=== PATIENT | female | born 1975 | race Caucasian/White ===

== ENCOUNTER 2017-09-26 12:07 | Emergency (ER) | payer MEDICAID ==
[~2017-09-26] VITALS: Ht 157.5 cm; Wt 50.0 kg
[~2017-09-26 12:07] MED LIST: DICY1TAB26 PO; FLAG500T PO; LOMO PO; SUCR1S PO; ZOFR4TAB3 SL
[2017-09-26 12:08] VITALS: BP 132/103; PULSE 125; RESP 20; TEMP 98.6; O2SAT 99
[2017-09-26 12:28] VITALS: BP 158/102; PULSE 109; RESP 20; O2SAT 97
[2017-09-26] MEDS ORDERED: SODIUM CHLOR 0.9% 1000 ML INJ 1,000 ML IV SCH (12:46)
[2017-09-26] MEDS ORDERED: MORPHINE SULFATE 4 MG/ML INJ IV PUSH ONE ×2 (13:00→15:30)
[2017-09-26] MEDS ORDERED: ONDANSETRON HCL 4 MG/2 ML VIAL IV PUSH ONE (13:00)
[2017-09-26] MEDS ORDERED: SODIUM CHLORIDE 0.9% FLUSH 10 ML FLUSH IV FLUSH PRN (13:00)
--- NOTE | 2017-09-26 13:01 | PD ---
HPI Chief Complaint: Abdominal Pain Time Seen by Provider: 12:48 Travel History International Travel<30 days: No Contact w/Intl Traveler<30days: No Traveled to known affect area: No History of Present Illness HPI 42-year-old female with PMH of pancreatitis presents to the ED for evaluation of 2 day history of 10/10 left upper quadrant pain that radiates to the back. Gradual onset. Accompanied by anorexia, nausea, vomiting, watery stools. Patient denies fevers, chills, palpitations, cough, hematemesis, melena, hematochezia, BRBPR. She states this pain feels similar to previous episodes of pancreatitis. She endorses social drinking. She states that she had her class reunion this weekend and drank Sunday and Sunday prior to onset of symptoms. No treatment attempted at home. She denies history of abdominal surgery. PFSH Past Medical History Hx Anticoagulant Therapy: No Asthma: No Heart Rhythm Problems: No Cancer: No Cardiovascular Problems: No High Cholesterol: No Chemotherapy: No Chest Pain: No Congestive Heart Failure: No COPD: No Cerebrovascular Accident: No Diabetes: No Diminished Hearing: No Endocrine: No Gastrointestinal Disorders: Yes GERD: Yes Genitourinary: No Headaches: Yes (OCCASIONAL) Hiatal Hernia: No Hypertension: No Immune Disorder: No Implanted Vascular Access Dvce: No Musculoskeletal: No Neurologic: Yes Psychiatric: No Reproductive: No Respiratory: No Pancreatitis: Yes Sleep Apnea: No Ulcer: No Tetanus Vaccination: > 5 Years Influenza Vaccination: No ?: Unknown : 3 Para: 3 Ovarian Cysts: Yes Past Surgical History Gynecologic Surgery: Yes (IUD) Hysterectomy: No Tonsillectomy: Yes Other Surgery: No Social History Alcohol Use: Yes (frequently) Tobacco Use: Yes (1.5 PPD) Substance Use: No Allergies-Medications (Allergen,Severity, Reaction): Coded Allergies: No Known Allergies (Verified Allergy, Unknown, 09/26/17) Uncoded Allergies: steroids (Allergy, Unknown, 09/26/17) pt does not know what type of reaction Reported Meds & Prescriptions Reported Meds & Active Scripts Active Zofran Odt (Ondansetron Odt) 4 Mg Tab 4 Mg SL Q8HR PRN Percocet (Oxycodone-Acetaminophen) 7.5-325 mg Tab 1 Tab PO Q6H PRN Review of Systems Except as stated in HPI: all other systems reviewed are Neg Physical Exam Narrative GENERAL: Well-nourished, well-developed petite white female in no acute distress. SKIN: Focused skin assessment warm/dry. HEAD: Normocephalic. EYES: No scleral icterus. No injection or drainage. NECK: Supple, trachea midline. No JVD or lymphadenopathy. CARDIOVASCULAR: Regular rate and rhythm without murmurs, gallops, or rubs. RESPIRATORY: Breath sounds equal bilaterally. No accessory muscle use. GASTROINTESTINAL: Abdomen soft, nondistended. Tender to palpation in the epigastric and left upper quadrant regions. Active bowel sounds. No palpable masses. MUSCULOSKELETAL: No cyanosis, or edema. BACK: Nontender without obvious deformity. Positive left-sided CVA tenderness. Data Data Last Documented VS Vital Signs Date Time Temp Pulse Resp B/P (MAP) Pulse Ox O2 Delivery O2 Flow Rate FiO2 09/26/17 15:43 78 18 170/101 (124) 98 Room Air 09/26/17 12:08 98.6 Orders Orders Complete Blood Count With Diff (09/26/17 12:46) Comprehensive Metabolic Panel (09/26/17 12:46) Lipase (09/26/17 12:46) Lactic Acid (09/26/17 12:46) Prothrombin Time / Inr (Pt) (09/26/17 12:46) Act Partial Throm Time (Ptt) (09/26/17 12:46) Urinalysis - C+S If Indicated (09/26/17 12:46) Iv Access Insert/Monitor (09/26/17 12:46) Ecg Monitoring (09/26/17 12:46) Oximetry (09/26/17 12:46) NPO (09/26/17 12:46) Morphine Inj (Morphine Inj) (09/26/17 13:00) Sodium Chlor 0.9% 1000 Ml Inj (Ns 1000 M (09/26/17 12:46) Sodium Chloride 0.9% Flush (Ns Flush) (09/26/17 13:00) Electrocardiogram (09/26/17 12:46) Ondansetron Inj (Zofran Inj) (09/26/17 13:00) Ct Abd/Pel W Iv Contrast(Rout) (09/26/17 12:56) Ed Urine Pregnancytest Poc (09/26/17 12:56) Potassium Chloride (Kcl) (09/26/17 14:30) Morphine Inj (Morphine Inj) (09/26/17 15:30) Iohexol 350 Inj (Omnipaque 350 Inj) (09/26/17 16:01) Oxycodone-Acetamin 7.5-325 Mg (Percocet (09/26/17 16:45) Ondansetron Odt (Zofran Odt) (09/26/17 16:45) Oral Rehydration (09/26/17 16:35) Ed Discharge Order (09/26/17 16:56) Labs Laboratory Tests Test 09/26/17 13:00 09/26/17 14:52 White Blood Count 13.3 TH/MM3 Red Blood Count 4.67 MIL/MM3 Hemoglobin 14.9 GM/DL Hematocrit 43.6 % Mean Corpuscular Volume 93.4 FL Mean Corpuscular Hemoglobin 31.8 PG Mean Corpuscular Hemoglobin Concent 34.1 % Red Cell Distribution Width 14.4 % Platelet Count 349 TH/MM3 Mean Platelet Volume 8.1 FL Neutrophils (%) (Auto) 73.8 % Lymphocytes (%) (Auto) 20.0 % Monocytes (%) (Auto) 4.5 % Eosinophils (%) (Auto) 1.4 % Basophils (%) (Auto) 0.3 % Neutrophils # (Auto) 9.8 TH/MM3 Lymphocytes # (Auto) 2.7 TH/MM3 Monocytes # (Auto) 0.6 TH/MM3 Eosinophils # (Auto) 0.2 TH/MM3 Basophils # (Auto) 0.0 TH/MM3 CBC Comment DIFF FINAL Differential Comment Prothrombin Time 10.6 SEC Prothromb Time International Ratio 1.0 RATIO Activated Partial Thromboplast Time 26.6 SEC Blood Urea Nitrogen 14 MG/DL Creatinine 0.73 MG/DL Random Glucose 161 MG/DL Total Protein 7.3 GM/DL Albumin 4.1 GM/DL Calcium Level 9.1 MG/DL Alkaline Phosphatase 79 U/L Aspartate Amino Transf (AST/SGOT) 39 U/L Alanine Aminotransferase (ALT/SGPT) 27 U/L Total Bilirubin 1.2 MG/DL Sodium Level 134 MEQ/L Potassium Level 3.4 MEQ/L Chloride Level 99 MEQ/L Carbon Dioxide Level 23.6 MEQ/L Anion Gap 11 MEQ/L Estimat Glomerular Filtration Rate 88 ML/MIN Lactic Acid Level 1.4 mmol/L Lipase 511 U/L Urine Color LIGHT-YELLOW Urine Turbidity CLEAR Urine pH 7.0 Urine Specific [place] 1.010 Urine Protein NEG mg/dL Urine Glucose (UA) NEG mg/dL Urine Ketones NEG mg/dL Urine Occult Blood NEG Urine Nitrite NEG Urine Bilirubin NEG Urine Urobilinogen LESS THAN 2.0 MG/DL Urine Leukocyte Esterase NEG Urine WBC LESS THAN 1 /hpf Urine Squamous Epithelial Cells 2 /hpf Microscopic Urinalysis Comment CULT NOT INDICATED MDM Medical Decision Making Medical Screen Exam Complete: Yes Emergency Medical Condition: Yes Differential Diagnosis Pancreatitis versus gastritis versus diverticulitis versus cholecystitis versus other Narrative Course 42-year-old female with PMH pancreatitis presents to the ED for evaluation 2 day history of 10/10 left upper quadrant pain that radiates to the back. Gradual onset with accompanying anorexia, nausea, vomiting, watery stools. States pain is similar to previous episodes of pancreatitis. Endorses social drinking, recent binge due to her class reunion. No treatment attempted at home. No history of abdominal surgery. Vitals reviewed. Patient is tachycardic and hypertensive on presentation. Physical exam reveals a petite white female in no acute distress. She is diffusely tender in the abdomen, worse in the epigastric region and upper left quadrant. IV was established. 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 EKG: Rate 81, sinus rhythm. SC interval 136, QRS 79, QTC 437. Normal axis. No ST changes. Reviewed by Dr. Mahajan. CBC: WBC 13.3. Hemoglobin 14.9. Coags: INR 1.0. CMP: Potassium 3.4. Bilirubin 1.2. AST 39. Lipase 511. CT abdomen and pelvis: Pancreatitis per radiology read. Patient was administered 40 mg KCl by mouth. I discussed the results of the work up with Dr. Mahajan and the patient. I offered her admission for fluids and pain management. At this time she opts to treat at home. We discussed reasons to return to the ED including intractable nausea and vomiting, fevers, hematemesis. She is provided a prescription for Zofran and Percocet. She is instructed to abstain from alcohol, hydrate. I feel the patient is reliable for return should symptoms worsen. She stable and discharged home. Diagnosis Primary Impression: Pancreatitis Qualified Codes: K85.20 - Alcohol induced acute pancreatitis without necrosis or infection Referrals: Primary Care Physician Patient Instructions: General Instructions, Pancreatitis (ED) Additional Instructions: Rest, hydrate. Take medications as prescribed. Abstain from alcohol. Follow-up with the primary care provider. Return to the ED for worsening symptoms or any urgent or emergent medical condition. Med/Other Pt SpecificInfo: Prescription(s) given Scripts Ondansetron Odt (Zofran Odt) 4 Mg Tab 4 MG SL Q8HR Y for Nausea/Vomiting, #6 TAB 0 Refills Prov: Olive Mahajan MD 09/26/17 Oxycodone-Acetaminophen (Percocet) 7.5-325 mg Tab 1 TAB PO Q6H Y for PAIN, #15 TAB 0 Refills Prov: Olive Mahajan MD 09/26/17 Disposition: 01 DISCHARGE HOME Condition: Stable Manju Cunningham Sep 26, 2017 13:01
[2017-09-26 13:05] VITALS: O2SAT 97
[2017-09-26 13:22] LABS: AUTOMATED NEUTROPHIL # 9.8 TH/MM3 (1.8-7.7); BASOPHIL % 0.3 % (0.0-2.0); EOSINOPHIL # 0.2 TH/MM3 (0-0.4); EOSINOPHIL % 1.4 % (0.0-4.0); HEMATOCRIT 43.6 % (35.0-46.0); HEMO FLAGS DIFF FINAL; LYMPHOCYTE # 2.7 TH/MM3 (1.0-4.8); MEAN CELL VOLUME 93.4 FL (80.0-100.0); MEAN CORPUSCULAR HEMOGLOBIN 31.8 PG (27.0-34.0); MEAN CORPUSCULAR HGB CONC 34.1 % (32.0-36.0); MONO % 4.5 % (0.0-8.0); NEUT % 73.8 % (16.0-70.0); PLATELET COUNT 349 TH/MM3 (150-450); RED BLOOD COUNT 4.67 MIL/MM3 (4.00-5.30); RED CELL DISTRIBUTION WIDTH 14.4 % (11.6-17.2); WHITE BLOOD COUNT 13.3 TH/MM3 (4.0-11.0)
[2017-09-26 13:35] LABS: APTT (PATIENT) 26.6 SEC (24.3-30.1); PROTHROMBIN TIME - PATIENT 10.6 SEC (9.8-11.6)
[2017-09-26 13:47] LABS: ALKALINE PHOSPHATASE 79 U/L (45-117); ALT (GPT) 27 U/L (10-53); TOTAL BILIRUBIN ADULT 1.2 MG/DL (0.2-1.0)
[2017-09-26 13:50] LABS: ANION GAP 11 MEQ/L (5-15); AST (GOT) 39 U/L (15-37); BICARBONATE 23.6 MEQ/L (21.0-32.0); BLOOD UREA NITROGEN 14 MG/DL (7-18); CHLORIDE 99 MEQ/L (98-107); GLOMERULAR FILTRATION RATE 88 ML/MIN (>89); POTASSIUM 3.4 MEQ/L (3.5-5.1); SODIUM (NA) 134 MEQ/L (136-145)
[2017-09-26] MEDS ORDERED: POTASSIUM CHLORIDE 20 MEQ CONTROLLED RELEASE TAB PO ONE (14:30)
--- NOTE | 2017-09-26 14:39 | PD ---
Physical Exam Date Seen by Provider: Sep 26, 2017 Narrative Patient presents with upper abdominal pain. She has a history of pancreatitis. Data Data Last Documented VS Vital Signs Date Time Temp Pulse Resp B/P (MAP) Pulse Ox O2 Delivery O2 Flow Rate FiO2 09/26/17 13:05 97 Room Air 09/26/17 12:28 109 20 09/26/17 12:08 98.6 Orders Orders Complete Blood Count With Diff (09/26/17 12:46) Comprehensive Metabolic Panel (09/26/17 12:46) Lipase (09/26/17 12:46) Lactic Acid (09/26/17 12:46) Prothrombin Time / Inr (Pt) (09/26/17 12:46) Act Partial Throm Time (Ptt) (09/26/17 12:46) Urinalysis - C+S If Indicated (09/26/17 12:46) Iv Access Insert/Monitor (09/26/17 12:46) Ecg Monitoring (09/26/17 12:46) Oximetry (09/26/17 12:46) NPO (09/26/17 12:46) Morphine Inj (Morphine Inj) (09/26/17 13:00) Sodium Chlor 0.9% 1000 Ml Inj (Ns 1000 M (09/26/17 12:46) Sodium Chloride 0.9% Flush (Ns Flush) (09/26/17 13:00) Electrocardiogram (09/26/17 12:46) Ondansetron Inj (Zofran Inj) (09/26/17 13:00) Ct Abd/Pel W Iv Contrast(Rout) (09/26/17 12:56) Ed Urine Pregnancytest Poc (09/26/17 12:56) Potassium Chloride (Kcl) (09/26/17 14:30) Labs Laboratory Tests Test 09/26/17 13:00 White Blood Count 13.3 TH/MM3 Red Blood Count 4.67 MIL/MM3 Hemoglobin 14.9 GM/DL Hematocrit 43.6 % Mean Corpuscular Volume 93.4 FL Mean Corpuscular Hemoglobin 31.8 PG Mean Corpuscular Hemoglobin Concent 34.1 % Red Cell Distribution Width 14.4 % Platelet Count 349 TH/MM3 Mean Platelet Volume 8.1 FL Neutrophils (%) (Auto) 73.8 % Lymphocytes (%) (Auto) 20.0 % Monocytes (%) (Auto) 4.5 % Eosinophils (%) (Auto) 1.4 % Basophils (%) (Auto) 0.3 % Neutrophils # (Auto) 9.8 TH/MM3 Lymphocytes # (Auto) 2.7 TH/MM3 Monocytes # (Auto) 0.6 TH/MM3 Eosinophils # (Auto) 0.2 TH/MM3 Basophils # (Auto) 0.0 TH/MM3 CBC Comment DIFF FINAL Differential Comment Prothrombin Time 10.6 SEC Prothromb Time International Ratio 1.0 RATIO Activated Partial Thromboplast Time 26.6 SEC Blood Urea Nitrogen 14 MG/DL Creatinine 0.73 MG/DL Random Glucose 161 MG/DL Total Protein 7.3 GM/DL Albumin 4.1 GM/DL Calcium Level 9.1 MG/DL Alkaline Phosphatase 79 U/L Aspartate Amino Transf (AST/SGOT) 39 U/L Alanine Aminotransferase (ALT/SGPT) 27 U/L Total Bilirubin 1.2 MG/DL Sodium Level 134 MEQ/L Potassium Level 3.4 MEQ/L Chloride Level 99 MEQ/L Carbon Dioxide Level 23.6 MEQ/L Anion Gap 11 MEQ/L Estimat Glomerular Filtration Rate 88 ML/MIN Lactic Acid Level 1.4 mmol/L Lipase 511 U/L MDM Supervised Visit with REINALDO: Yes Narrative Course I, Dr. Mahajan, have reviewed the advance practice practitioner's documentation and am in agreement, met with the patient face to face, made the diagnosis, and the medical decision making was done by me. *My assessment and Findings: Patient looks well. She is asking use the restroom. Please see Manju Cunningham PA-C's note for results of laboratory and radiographic evaluation, ED course, final diagnosis and disposition Scripts No Active Prescriptions or Reported Meds Olive Mahajan MD Sep 26, 2017 14:39
[2017-09-26 15:09] LABS: BLOOD, URINE NEG (NEG); COMMENT (UR) CULT NOT INDICATED; CULTURE IF INDICATED CULT NOT INDICATED; GLUCOSE,URINE NEG (NEG); KETONE, URINE NEG (NEG); NITRITE,URINE NEG (NEG); SQUAMOUS EPITHELIAL CELL URINE 2 /hpf (0-5); URINE COLOR LIGHT-YELLOW (YELLW/STRAW)
[2017-09-26 15:43] VITALS: BP 170/101; PULSE 78; RESP 18; O2SAT 98
[2017-09-26] MEDS ORDERED: IOHEXOL 350 MG/ML 10 ML VIAL (for RAD DIAG) IVCONTRAST ONE (16:01)
--- NOTE | 2017-09-26 16:22 | RADRPT ---
EXAM DATE/TIME: 09/26/2017 15:52 [facility] COMPARISON: No previous studies available for comparison. INDICATIONS : Right upper quadrant pain. IV CONTRAST: 100 cc Omnipaque 350 (iohexol) IV ORAL CONTRAST: No oral contrast ingested. RADIATION DOSE: 6.64 CTDIvol (mGy) MEDICAL HISTORY : Pancreatitis. SURGICAL HISTORY : IUD ENCOUNTER: Initial ACUITY: 1 day PAIN SCALE: 7/10 LOCATION: Right upper quadrant TECHNIQUE: Volumetric scanning of the abdomen and pelvis was performed. Using automated exposure control and ad justment of the mA and/or kV according to patient size, radiation dose was kept as low as reasonably achievable to obtain optimal diagnostic quality images. DICOM format image data is available electro nically for review and comparison. FINDINGS: LOWER LUNGS: The visualized lower lungs are clear. LIVER: Homogeneous density without lesion. There is no dilation of the biliary tree. No calcified gallston es. SPLEEN: Normal size without lesion. PANCREAS: Moderate peripancreatic edema consistent with pancreatitis. No evidence of loculated fluid collection to suggest pseudocyst or abscess at present. KIDNEYS: Normal in size and shape. There is no mass, stone or hydronephrosis. ADRENAL GLANDS: Within normal limits. VASCULAR: There is no aortic aneurysm. BOWEL/MESENTERY: The stomach, small bowel, and colon demonstrate no acute abnormality. There is no free intraperitone al air or fluid. ABDOMINAL WALL: Within normal limits. RETROPERITONEUM: There is no lymphadenopathy. BLADDER: No wall thickening or mass. REPRODUCTIVE: Intrauterine device in place. No evidence of adnexal mass or free fluid. INGUINAL: There is no lymphadenopathy or hernia. MUSCULOSKELETAL: Within normal limits for patient age. CONCLUSION: Pancreatitis. Arun Smith MD on September 26, 2017 at 16:15 Board Certified Radiologist. This report was verified electronically.
[2017-09-26] MEDS ORDERED: oxyCODONE/ACETAMINOPHEN 7.5 MG/325 MG TAB PO ONE (16:45)
[2017-09-26] MEDS ORDERED: ONDANSETRON ODT 4 MG TAB PO ONE (16:45)
[2017-09-26] MEDS ORDERED: PERC7.5T13 PO (16:56)
[2017-09-26] MEDS ORDERED: ZOFR4TAB3 SL (16:56)
[2017-09-26 18:17] VITALS: BP 160/95
--- NOTE | 2017-09-26 19:42 | EKG ---
Date Performed: 09/26/2017 Time Performed: 13:30:31 PTAGE: 42 years EKG: Sinus rhythm NORMAL ECG Compared to prior electrocardiogram, rate has decreased and Nonspecific T wave changes ar e less marked PREVIOUS TRACING : 07/05/2015 17.39 DOCTOR: Agustin Cain Interpretating Date/Time 09/26/2017 19:40:09
== END 2017-09-26 18:21 | disposition home or self-care (01) ==
LOC: NEPC 12:07
DX: K85.90 Acute pancreatitis without necrosis or infection, unspecified (principal)
CPT/HCPCS: 74177; 80053; 81001; 83605; 83690; 84703; 85025; 85610; 85730; 93005; 96361; 96374; 96375; 96376; 99284; J2270; J2405; J7030; Q9967

== ENCOUNTER 2018-10-11 17:43 | Observation (INO) ==
[2018-10-11] MEDS ORDERED: Sod Chloride 0.9% Inj 1,000 ML IV.SIG ONE (19:39)
[2018-10-11] MEDS ORDERED: Morphine Inj 4 MG/ML Vial IV.PUSH ONE (19:39)
[2018-10-11 20:03] LABS: Baso # (Auto) 0.1 th/mm3 (0.0-0.2); Baso % (Auto) 0.6 % (0.0-2.0); Eos # (Auto) 0.1 th/mm3 (0.0-0.4); Hemoglobin 15.9 gm/dL (11.6-15.3); Lymph # (Auto) 3.5 th/mm3 (1.0-4.8); Lymph % (Auto) 24.1 % (9.0-44.0); Mean Corpuscular HGB Conc 33.8 % (32.0-36.0); Mean Corpuscular Hemoglobin 31.5 pg (27.0-34.0); Mean Corpuscular Volume 93.2 fL (80.0-100.0); Mean Platelet Volume 8.1 fL (7.0-11.0); Mono # (Auto) 0.5 th/mm3 (0.0-0.9); Mono % (Auto) 3.8 % (0.0-8.0); Neut # (Auto) 10.2 th/mm3 (1.8-7.7); Neut % (Auto) 70.5 % (16.0-70.0); Platelet Count 387 th/mm3 (150-450); Red Blood Count 5.04 mil/mm3 (4.00-5.30); Red Cell Distribution Width 13.9 % (11.6-17.2); White Blood Count 14.5 th/mm3 (4.0-11.0)
[2018-10-11 20:15] LABS: Albumin 4.5 g/dL (3.4-5.0); Anion Gap 8 meq/L (5-15); Aspartate Aminotransferase 13 U/L (15-37); Blood Urea Nitrogen 20 mg/dL (7-18); Calcium 9.1 mg/dL (8.5-10.1); Carbon Dioxide 24.1 meq/L (21.0-32.0); Chloride 104 meq/L (98-107); Glomerular Filtration Rate 69 mL/min (>89); Glucose,Random 115 mg/dL (74-106); Lipase 187 U/L (73-393); Magnesium 1.8 mg/dL (1.5-2.5); Potassium 3.8 meq/L (3.5-5.1); Sodium 136 meq/L (136-145)
[2018-10-11 20:16] LABS: Alanine Aminotransferase 15 U/L (10-53)
[2018-10-11 20:18] LABS: Alkaline Phosphatase 67 U/L (45-117)
--- NOTE | 2018-10-11 20:21 | ED ---
HPI General Chief Complaint: Chest Pain Stated Complaint: chest pain Time Seen by Provider: 10/11/18 19:18 Source: patient Mode of arrival: ambulatory Limitations: no limitations History of Present Illness HPI narrative: 43-year-old female with history of recurrent pancreatitis came to the emergency room with history of epigastric pain for past 3 days. Patient says there is associated nausea and vomiting. Patient was crying because of the pain. She says that her last pancreatitis episode was 3 months back. She was seen in [facility] at that time. Last vomiting was 2 hours ago. Patient has history of diabetes and says that her pancreatitis is associated with high triglyceride levels. She still has her gallbladder. In the past workup they have never found any gallbladder issues as per the patient. She drank some alcohol 1 week back. She ate some chili the night before the pain started. The pain radiates to her back and is 10 out of 10. No aggravating or relieving symptoms identified. Related Data Home Medications Medication Instructions Recorded Confirmed insulin NPH and regular human 3 unit SUBCUT QID 10/11/18 10/11/18 [Humulin 70/30 U-100 Insulin] insulin detemir U-100 [Levemir 10 unit SUBCUT DAILY 10/11/18 10/11/18 U-100 Insulin] [id number] [Creon] 1 cap PO BID 10/12/18 10/12/18 trazodone 300 mg PO HS 10/12/18 10/12/18 Previous Rx's Medication Instructions Recorded fenofibrate nanocrystallized 145 mg PO DAILY 30 Days #30 tab 10/13/18 metoclopramide HCl [Reglan] 10 mg PO TID PRN #12 tab 10/13/18 oxycodone 5 mg PO Q6H PRN #12 tab 10/13/18 Allergies Allergy/AdvReac Type Severity Reaction Status Date / Time steroids Allergy Mild Respiratory Uncoded 10/11/18 22:14 Failure Review of Systems ROS: all other systems reviewed are negative [facility] Medical History Medical History Anxiety (Acute) Diabetes (Acute) Gastroparesis (Acute) Pancreatitis (Acute) Surgical History Surgical History No history of previous surgery (Acute) Family History Family History Other Diabetes mellitus Social History Social History Substance History: No History of Abuse Second Hand Smoke Exposure: Yes Smoking Status: Current every day smoker Tobacco Type: Cigarettes How Often Do You Have a Drink Containing Alcohol: Monthly or less Recent Travel in [facility] within the Last 8 Weeks: No Recent Out of Country Travel within the Last 8 Weeks: No Immunization History Tetanus Immunization: >5 Years Exam Narrative Exam Narrative: GENERAL: Awake, alert, anxious, significant distress, crying SKIN: Focused skin assessment warm/dry. HEAD: Atraumatic. Normocephalic. EYES: Pupils equal and round. No scleral icterus. No injection or drainage. ENT: No nasal bleeding or discharge. Mucous membranes pink and moist. NECK: Trachea midline. No JVD. CARDIOVASCULAR: Regular rate and rhythm. No murmur appreciated. RESPIRATORY: No accessory muscle use. Clear to auscultation. Breath sounds equal bilaterally. GASTROINTESTINAL: Abdomen soft, tender in the epigastric area, nondistended. Hepatic and splenic margins not palpable. MUSCULOSKELETAL: No obvious deformities. No clubbing. No cyanosis. No edema. NEUROLOGICAL: Awake and alert. No obvious cranial nerve deficits. Motor grossly within normal limits. Normal speech. PSYCHIATRIC: Appropriate mood and affect; insight and judgment normal. Course Initial Documented Vital Signs Temperature 99.0 F 10/11/18 17:50 Pulse Rate 108 H 10/11/18 17:50 Respiratory Rate 18 10/11/18 17:50 Blood Pressure 140/89 10/11/18 17:50 Pulse Oximetry 97 10/11/18 17:50 Last Documented Vital Signs Temperature 97.8 F 10/13/18 11:02 Pulse Rate 68 10/13/18 11:02 Respiratory Rate 18 10/13/18 11:02 Blood Pressure 117/76 10/13/18 11:02 Pulse Oximetry 96 10/13/18 11:02 Medical Decision Making [facility] Narrative Medical decision making narrative: 8:21 PM patient was given pain medication and IV fluid bolus. Blood test shows elevated white blood cell count. The lipase is within normal limits. Awaiting for a UA and CAT scan to be done and resulted. 9:01 PM blood test results are back and within acceptable limits except for some leukocytosis. Waiting for the CAT scan to be done and resulted. 10:09 PM patient says upon reassessment that pain got little bit better and now it is coming back. CAT scan shows mild acute pancreatitis. I have ordered a second dose of pain medication and would like to admit the patient. Medical Screen Exam Complete: Yes Emergency Medical Condition: Yes Lab Data Result diagrams: 10/12/18 06:10 10/13/18 07:10 Lab Results 10/11/18 10/11/18 10/11/18 Range/Units 19:47 19:47 19:47 WBC 14.5 H (4.0-11.0) th/mm3 RBC 5.04 (4.00-5.30) mil/mm3 Hgb 15.9 H (11.6-15.3) gm/dL Hct 47.0 H (35.0-46.0) % MCV 93.2 (80.0-100.0) fL MCH 31.5 (27.0-34.0) pg MCHC 33.8 (32.0-36.0) % RDW 13.9 (11.6-17.2) % Plt Count 387 (150-450) th/mm3 MPV 8.1 (7.0-11.0) fL Neut % (Auto) 70.5 H (16.0-70.0) % Lymph % (Auto) 24.1 (9.0-44.0) % [place] % (Auto) 3.8 (0.0-8.0) % Eos % (Auto) 1.0 (0.0-4.0) % Baso % (Auto) 0.6 (0.0-2.0) % Neut # (Auto) 10.2 H (1.8-7.7) th/mm3 Lymph # (Auto) 3.5 (1.0-4.8) th/mm3 [place] # (Auto) 0.5 (0.0-0.9) th/mm3 Eos # (Auto) 0.1 (0.0-0.4) th/mm3 Baso # (Auto) 0.1 (0.0-0.2) th/mm3 WBC Differential . Differential Comment Auto diff final Sodium 136 (136-145) meq/L Potassium 3.8 (3.5-5.1) meq/L Chloride 104 (98-107) meq/L Carbon Dioxide 24.1 (21.0-32.0) meq/L Anion Gap 8 (5-15) meq/L BUN 20 H (7-18) mg/dL Creatinine 0.90 (0.50-1.00) mg/dL Estimated GFR 69 L (>89) mL/min POC Glucose (68-110) mg/dl Random Glucose 115 H (74-106) mg/dL Calcium 9.1 (8.5-10.1) mg/dL Magnesium 1.8 (1.5-2.5) mg/dL Total Bilirubin 0.3 (0.2-1.0) mg/dL AST 13 L (15-37) U/L ALT 15 (10-53) U/L Alkaline Phosphatase 67 (45-117) U/L Total Protein 8.0 (6.4-8.2) g/dL Albumin 4.5 (3.4-5.0) g/dL Triglycerides (42-150) mg/dL Cholesterol (120-200) mg/dL LDL Cholesterol, Calc (0-99) mg/dL HDL Cholesterol (40.0-60.0) mg/dL Cholesterol/HDL Ratio Ratio Lipase 187 (73-393) U/L Urine Color (Yellw/Straw) Urine Clarity (Clear) Urine pH (5.0-8.5) Ur Specific Vernal (1.002-1.035) Urine Protein (Neg-Trace) mg/dL Urine Glucose (UA) (Negative) mg/dL Urine Ketones (Negative) mg/dL Urine Occult Blood (Negative) Urine Nitrate (Negative) Urine Bilirubin (Negative) Urine Urobilinogen (Less than 2) mg/dL Ur Leukocyte Esterase (Negative) Urine WBC (0-5) /hpf Ur Squamous Epith Cells (0-5) /hpf Micro UA Comment Ur Microscopic Review Urine Culture Comments Serum Alcohol Less than 3 Cancelled (0-5) mg/dL 10/11/18 10/12/18 10/12/18 Range/Units 20:16 00:31 03:25 WBC (4.0-11.0) th/mm3 RBC (4.00-5.30) mil/mm3 Hgb (11.6-15.3) gm/dL Hct (35.0-46.0) % MCV (80.0-100.0) fL MCH (27.0-34.0) pg MCHC (32.0-36.0) % RDW (11.6-17.2) % Plt Count (150-450) th/mm3 MPV (7.0-11.0) fL Neut % (Auto) (16.0-70.0) % Lymph % (Auto) (9.0-44.0) % [place] % (Auto) (0.0-8.0) % Eos % (Auto) (0.0-4.0) % Baso % (Auto) (0.0-2.0) % Neut # (Auto) (1.8-7.7) th/mm3 Lymph # (Auto) (1.0-4.8) th/mm3 [place] # (Auto) (0.0-0.9) th/mm3 Eos # (Auto) (0.0-0.4) th/mm3 Baso # (Auto) (0.0-0.2) th/mm3 WBC Differential Differential Comment Sodium (136-145) meq/L Potassium (3.5-5.1) meq/L Chloride (98-107) meq/L Carbon Dioxide (21.0-32.0) meq/L Anion Gap (5-15) meq/L BUN (7-18) mg/dL Creatinine (0.50-1.00) mg/dL Estimated GFR (>89) mL/min POC Glucose 115 H 156 H (68-110) mg/dl Random Glucose (74-106) mg/dL Calcium (8.5-10.1) mg/dL Magnesium (1.5-2.5) mg/dL Total Bilirubin (0.2-1.0) mg/dL AST (15-37) U/L ALT (10-53) U/L Alkaline Phosphatase (45-117) U/L Total Protein (6.4-8.2) g/dL Albumin (3.4-5.0) g/dL Triglycerides (42-150) mg/dL Cholesterol (120-200) mg/dL LDL Cholesterol, Calc (0-99) mg/dL HDL Cholesterol (40.0-60.0) mg/dL Cholesterol/HDL Ratio Ratio Lipase (73-393) U/L Urine Color Yellow (Yellw/Straw) Urine Clarity Hazy H (Clear) Urine pH 5.0 (5.0-8.5) Ur Specific Vernal 1.033 (1.002-1.035) Urine Protein 30 H (Neg-Trace) mg/dL Urine Glucose (UA) Negative (Negative) mg/dL Urine Ketones Trace H (Negative) mg/dL Urine Occult Blood Negative (Negative) Urine Nitrate Negative (Negative) Urine Bilirubin Negative (Negative) Urine Urobilinogen 2.0 H (Less than 2) mg/dL Ur Leukocyte Esterase Trace H (Negative) Urine WBC 1 (0-5) /hpf Ur Squamous Epith Cells 12 (0-5) /hpf Micro UA Comment Culture not ind Ur Microscopic Review Not Reportable Urine Culture Comments Culture not ind Serum Alcohol (0-5) mg/dL 10/12/18 10/12/18 10/12/18 Range/Units 06:10 06:10 12:49 WBC 14.6 H (4.0-11.0) th/mm3 RBC 4.55 (4.00-5.30) mil/mm3 Hgb 14.7 (11.6-15.3) gm/dL Hct 43.8 (35.0-46.0) % MCV 96.1 (80.0-100.0) fL MCH 32.3 (27.0-34.0) pg MCHC 33.6 (32.0-36.0) % RDW 14.1 (11.6-17.2) % Plt Count 308 (150-450) th/mm3 MPV 7.5 (7.0-11.0) fL Neut % (Auto) 60.0 (16.0-70.0) % Lymph % (Auto) 31.9 (9.0-44.0) % [place] % (Auto) 5.2 (0.0-8.0) % Eos % (Auto) 2.2 (0.0-4.0) % Baso % (Auto) 0.7 (0.0-2.0) % Neut # (Auto) 8.7 H (1.8-7.7) th/mm3 Lymph # (Auto) 4.6 (1.0-4.8) th/mm3 [place] # (Auto) 0.8 (0.0-0.9) th/mm3 Eos # (Auto) 0.3 (0.0-0.4) th/mm3 Baso # (Auto) 0.1 (0.0-0.2) th/mm3 WBC Differential . Differential Comment Auto diff final Sodium 139 (136-145) meq/L Potassium 3.7 (3.5-5.1) meq/L Chloride 110 H (98-107) meq/L Carbon Dioxide 24.1 (21.0-32.0) meq/L Anion Gap 5 (5-15) meq/L BUN 8 (7-18) mg/dL Creatinine 0.66 (0.50-1.00) mg/dL Estimated GFR Greater than 89 (>89) mL/min POC Glucose 160 H (68-110) mg/dl Random Glucose 126 H (74-106) mg/dL Calcium 8.3 L D (8.5-10.1) mg/dL Magnesium (1.5-2.5) mg/dL Total Bilirubin 0.2 (0.2-1.0) mg/dL AST 7 L (15-37) U/L ALT 12 (10-53) U/L Alkaline Phosphatase 54 (45-117) U/L Total Protein 7.1 D (6.4-8.2) g/dL Albumin 3.6 D (3.4-5.0) g/dL Triglycerides 664 H (42-150) mg/dL Cholesterol 199 (120-200) mg/dL LDL Cholesterol, Calc (0-99) mg/dL HDL Cholesterol 34.2 L (40.0-60.0) mg/dL Cholesterol/HDL Ratio 5.81 Ratio Lipase 151 (73-393) U/L Urine Color (Yellw/Straw) Urine Clarity (Clear) Urine pH (5.0-8.5) Ur Specific Vernal (1.002-1.035) Urine Protein (Neg-Trace) mg/dL Urine Glucose (UA) (Negative) mg/dL Urine Ketones (Negative) mg/dL Urine Occult Blood (Negative) Urine Nitrate (Negative) Urine Bilirubin (Negative) Urine Urobilinogen (Less than 2) mg/dL Ur Leukocyte Esterase (Negative) Urine WBC (0-5) /hpf Ur Squamous Epith Cells (0-5) /hpf Micro UA Comment Ur Microscopic Review Urine Culture Comments Serum Alcohol (0-5) mg/dL 10/12/18 10/12/18 10/13/18 Range/Units 17:08 21:22 03:57 WBC (4.0-11.0) th/mm3 RBC (4.00-5.30) mil/mm3 Hgb (11.6-15.3) gm/dL Hct (35.0-46.0) % MCV (80.0-100.0) fL MCH (27.0-34.0) pg MCHC (32.0-36.0) % RDW (11.6-17.2) % Plt Count (150-450) th/mm3 MPV (7.0-11.0) fL Neut % (Auto) (16.0-70.0) % Lymph % (Auto) (9.0-44.0) % [place] % (Auto) (0.0-8.0) % Eos % (Auto) (0.0-4.0) % Baso % (Auto) (0.0-2.0) % Neut # (Auto) (1.8-7.7) th/mm3 Lymph # (Auto) (1.0-4.8) th/mm3 [place] # (Auto) (0.0-0.9) th/mm3 Eos # (Auto) (0.0-0.4) th/mm3 Baso # (Auto) (0.0-0.2) th/mm3 WBC Differential Differential Comment Sodium (136-145) meq/L Potassium (3.5-5.1) meq/L Chloride (98-107) meq/L Carbon Dioxide (21.0-32.0) meq/L Anion Gap (5-15) meq/L BUN (7-18) mg/dL Creatinine (0.50-1.00) mg/dL Estimated GFR (>89) mL/min POC Glucose 146 H 189 H 182 H (68-110) mg/dl Random Glucose (74-106) mg/dL Calcium (8.5-10.1) mg/dL Magnesium (1.5-2.5) mg/dL Total Bilirubin (0.2-1.0) mg/dL AST (15-37) U/L ALT (10-53) U/L Alkaline Phosphatase (45-117) U/L Total Protein (6.4-8.2) g/dL Albumin (3.4-5.0) g/dL Triglycerides (42-150) mg/dL Cholesterol (120-200) mg/dL LDL Cholesterol, Calc (0-99) mg/dL HDL Cholesterol (40.0-60.0) mg/dL Cholesterol/HDL Ratio Ratio Lipase (73-393) U/L Urine Color (Yellw/Straw) Urine Clarity (Clear) Urine pH (5.0-8.5) Ur Specific Vernal (1.002-1.035) Urine Protein (Neg-Trace) mg/dL Urine Glucose (UA) (Negative) mg/dL Urine Ketones (Negative) mg/dL Urine Occult Blood (Negative) Urine Nitrate (Negative) Urine Bilirubin (Negative) Urine Urobilinogen (Less than 2) mg/dL Ur Leukocyte Esterase (Negative) Urine WBC (0-5) /hpf Ur Squamous Epith Cells (0-5) /hpf Micro UA Comment Ur Microscopic Review Urine Culture Comments Serum Alcohol (0-5) mg/dL 10/13/18 10/13/18 10/13/18 Range/Units 07:10 08:07 12:05 WBC (4.0-11.0) th/mm3 RBC (4.00-5.30) mil/mm3 Hgb (11.6-15.3) gm/dL Hct (35.0-46.0) % MCV (80.0-100.0) fL MCH (27.0-34.0) pg MCHC (32.0-36.0) % RDW (11.6-17.2) % Plt Count (150-450) th/mm3 MPV (7.0-11.0) fL Neut % (Auto) (16.0-70.0) % Lymph % (Auto) (9.0-44.0) % [place] % (Auto) (0.0-8.0) % Eos % (Auto) (0.0-4.0) % Baso % (Auto) (0.0-2.0) % Neut # (Auto) (1.8-7.7) th/mm3 Lymph # (Auto) (1.0-4.8) th/mm3 [place] # (Auto) (0.0-0.9) th/mm3 Eos # (Auto) (0.0-0.4) th/mm3 Baso # (Auto) (0.0-0.2) th/mm3 WBC Differential Differential Comment Sodium 139 (136-145) meq/L Potassium 3.8 (3.5-5.1) meq/L Chloride 106 (98-107) meq/L Carbon Dioxide 23.4 (21.0-32.0) meq/L Anion Gap 10 (5-15) meq/L BUN 6 L (7-18) mg/dL Creatinine 0.64 (0.50-1.00) mg/dL Estimated GFR Greater than 89 (>89) mL/min POC Glucose 162 H 210 H (68-110) mg/dl Random Glucose 144 H (74-106) mg/dL Calcium 8.8 (8.5-10.1) mg/dL Magnesium (1.5-2.5) mg/dL Total Bilirubin 0.4 (0.2-1.0) mg/dL AST 25 (15-37) U/L ALT 17 (10-53) U/L Alkaline Phosphatase 108 (45-117) U/L Total Protein 7.1 (6.4-8.2) g/dL Albumin 3.6 (3.4-5.0) g/dL Triglycerides (42-150) mg/dL Cholesterol (120-200) mg/dL LDL Cholesterol, Calc (0-99) mg/dL HDL Cholesterol (40.0-60.0) mg/dL Cholesterol/HDL Ratio Ratio Lipase (73-393) U/L Urine Color (Yellw/Straw) Urine Clarity (Clear) Urine pH (5.0-8.5) Ur Specific Vernal (1.002-1.035) Urine Protein (Neg-Trace) mg/dL Urine Glucose (UA) (Negative) mg/dL Urine Ketones (Negative) mg/dL Urine Occult Blood (Negative) Urine Nitrate (Negative) Urine Bilirubin (Negative) Urine Urobilinogen (Less than 2) mg/dL Ur Leukocyte Esterase (Negative) Urine WBC (0-5) /hpf Ur Squamous Epith Cells (0-5) /hpf Micro UA Comment Ur Microscopic Review Urine Culture Comments Serum Alcohol (0-5) mg/dL Imaging Data Radiologist's impression: Abdomen/Pelvis CT 10/11/18 19:39 CONCLUSION: 1. Findings most consistent with uncomplicated mild acute pancreatitis. No peripancreatic fluid collections. ECG Data Attestation: I personally reviewed and interpreted this ECG as follows: Interpretation: Twelve-lead EKG was reviewed by me. Normal sinus rhythm, normal axis, nonspecific ST-T wave changes. Heart rate of 100 bpm. Discharge Plan Discharge Disposition Patient Disposition: 30 Still Patient Discharge Condition Condition: Fair Discharge Order Discharge Orders: Discharge Order (Routine); Ordered 10/13/18 Ordered By: Cece Schulz Discharge Details Anticipated Discharge Date: 10/13/18 Discharge Comment: if tolerating diet Physicians Team ED Provider: Jason Chavez Primary Care Provider: Primary Care Fidelia Gaona Attending Provider: Cece Schulz Status ED Status: Left Department Discharge Information Discharge Date/Time: 10/12/18 01:31
[2018-10-11] MEDS ORDERED: Sod Chloride 0.9% Inj 1,000 ML IV.SIG SCH (20:30)
[2018-10-11 20:50] LABS: Bilirubin,Urine Negative (Negative); Clarity,Urine Hazy (Clear); Color,Urine Yellow (Yellw/Straw); Glucose,Urine (UA) Negative (Negative); Leukocyte Esterase,Urine Trace (Negative); Nitrite,Urine Negative (Negative); Specific Gravity,Urine 1.033 (1.002-1.035); Squamous Epithelial Cell,Urine 12 /hpf (0-5)
--- NOTE | 2018-10-11 21:29 | CT ---
EXAM DATE: 10/11/2018 9:24 PM EST AGE/SEX: 43 years / Female INDICATIONS: Epigastric pain, nausea vomiting. CLINICAL DATA: This is the patient's initial encounter. Patient reports that signs and symptoms have been present for 1 day and indicates a pain score of 10/10. MEDICAL/SURGICAL HISTORY: Diabetes. Pancreatitis. None. ORAL CONTRAST: No oral contrast ingested. RADIATION DOSE: 6.64 CTDI (mGy) COMPARISON: [facility] [place], CT ABDOMEN & PELVIS W CONTRAST, 09/26/2017. . TECHNIQUE: Multiple contiguous axial images were obtained through the abdomen and pelvis following b olus infusion of 93 ml Omnipaque 350 (iohexol) nonionic water-soluble contrast as a single exam dos e. No oral contrast ingested. Using automated exposure control and adjustment of the mA and/or kV ac cording to patient size, radiation dose was kept as low as reasonably achievable to obtain optimal di agnostic quality images. DICOM format image data is available electronically for review and comparis on. FINDINGS: LOWER LUNGS: The visualized lower lungs are clear. LIVER: The liver has a homogeneous density without space-occupying lesion. Common bile duct is borde rline in size measuring 6 mm. SPLEEN: Homogeneous density without enlargement. PANCREAS: Mild diffuse peripancreatic stranding without peripancreatic focal fluid collections. Panc reas appears to enhance uniformly. KIDNEYS: Kidneys demonstrate symmetrical enhancement and are symmetrical in size without evidence fo r radiopaque renal calculi or hydronephrosis. ADRENAL GLANDS: Unremarkable. AORTA: Roselyn-aneurysmal. BOWEL/MESENTERY: The bowel loops are grossly unremarkable. The cecum and sigmoid colon have a vickie l configuration. Appendix is visualized and normal in appearance. No free fluid or drainable fluid co llections. No free air or pneumatosis. ABDOMINAL WALL: Intact. RETROPERITONEUM: No evidence of adenopathy in the retrocrural, para-aortic, or deep pelvic regions. BLADDER: Contours are smooth. REPRODUCTIVE: There is an IUD in place. BONY STRUCTURES: Unremarkable. CONCLUSION: 1. Findings most consistent with uncomplicated mild acute pancreatitis. No peripancreatic fluid colin ections. Electronically signed by: Jose G Combs MD 10/11/2018 9:28 PM EST
[2018-10-11] MEDS ORDERED: Morphine Sulfate Inj 8 MG/ML Vial IV.PUSH ONE (22:08)
[2018-10-12] MEDS ORDERED: Dextrose 50% in Water 50 ML Vial IV.PUSH PRN (00:08)
--- NOTE | 2018-10-12 00:17 | P.HP ---
History of Present Illness Service: [facility] Primary Care Physician: No Primary Care Physician History of Present Illness: 43-year-old female with a past medical history significant for diabetes mellitus , gastroparesis, anxiety and previous episode of pancreatitis secondary to hypertriglyceridemia presents to the emergency department for evaluation of epigastric abdominal pain. The patient reports the pain started Sunday and is worsening. She states it radiates into her chest and is worse with inspiration. She also reports the pain feels as though it is boring into her back. Lipase within normal limits. CT of the abdomen/pelvis significant for mild pancreatitis. The patient denies any shortness of breath. No fever/ chills. She endorses associated nausea/vomiting. Review of Systems All other systems reviewed negative except as stated in HPI [facility] - History History Provided By: Patient - Medical History Medical History: Medical History (Last Updated 10/12/18 @ 00:12 by Shara Botello MD) Anxiety Diabetes Gastroparesis Pancreatitis - Surgical History Surgical History: Surgical History (Last Reviewed 10/12/18 @ 00:12 by Shara Botello MD) No history of previous surgery - Family History Family History: Family History (Last Updated 10/12/18 @ 00:12 by Shara Botello MD) Other Diabetes mellitus - Tobacco History Second Hand Smoke Exposure: Yes Tobacco Use In Past 30 Days: Yes Smoking Status: Current every day smoker Tobacco Type: Cigarettes - Alcohol History How Often Do You Have a Drink Containing Alcohol: Monthly or less - Substance Use History Substance History: No History of Abuse - Travel History Recent Travel in the [place] Within the Last 8 Weeks: No Recent Travel Out of the Country Within the Last 8 Weeks: No - Immunization History Tetanus Immunization: >5 Years Medications and Allergies Active Medications: Active Medications Dextrose (D50w Vial) 50 ml IV.PUSH UNSCH PRN PRN Reason: PER HYPOGLYCEMIA PROTOCOL Glucagon (Glucagon Inj) 1 mg OTHER PRN PRN PRN Reason: for Hypoglycemia Protocol Lactated Ringer's (Lr 1000 Ml Inj) 1,000 mls @ 125 mls/hr IV.CONT .Q8H TABBY Insulin Aspart (Novolog Insulin Correctional Sugar Inj) 0 unit SQ ACHS AND 3AM TABBY; Protocol Morphine Sulfate (Morphine Inj) 4 mg IV.PUSH Q4H PRN PRN Reason: pain 6-10 Ondansetron HCl (Zofran Inj) 4 mg IV.PUSH Q6H PRN PRN Reason: NAUSEA OR VOMITING Sodium Chloride (Ns Flush) 2 ml IV.FLUSH PRN PRN PRN Reason: FLUSH AFTER USING IV ACCESS Sodium Chloride (Ns Flush) 2 ml IV.FLUSH BID TABBY Sodium Chloride (Ns Flush) 2 ml IV.FLUSH PRN PRN PRN Reason: FLUSH AFTER USING IV ACCESS Allergies Allergy/AdvReac Type Severity Reaction Status Date / Time steroids Allergy Mild Respiratory Uncoded 10/11/18 22:14 Failure Home Medications Medication Instructions Recorded Confirmed Type insulin NPH and regular human 3 unit SUBCUT QID 10/11/18 10/11/18 History [Humulin 70/30 U-100 Insulin] insulin detemir U-100 [Levemir 10 unit SUBCUT DAILY 10/11/18 10/11/18 History U-100 Insulin] Exam Vital signs: Vital Signs 10/11/18 17:50 10/11/18 17:51 10/11/18 22:02 Temperature 99.0 F Pulse Rate 108 H 91 H 72 Respiratory Rate 18 16 18 Blood Pressure 140/89 168/116 H 140/80 Pulse Oximetry 97 97 97 10/11/18 23:22 Temperature Pulse Rate 91 H Respiratory Rate 18 Blood Pressure 132/86 Pulse Oximetry 95 Intake & Output 10/11/18 10/11/18 10/12/18 06:59 18:59 06:59 Intake Total 1999 Balance 1999 Weight 52.163 kg Intake: IV 1999 NS Inj 1,000 ML @ Wide Open IV. 1999 SIG BOLUS ONE Rx#:[id number] Narrative: Gen.: No acute distress Head: Normocephalic. Atraumatic. EENT: Pupils equal round and reactive to light. Nose without drainage. Airway intact. Throat without injection. Cardiovascular: Regular rate and rhythm. No murmurs, rubs or gallops. Respiratory: Lungs clear to auscultation bilaterally. No wheezes or rhonchi. Abdomen: Soft, exquisitely tender to palpation in the epigastrium, nondistended. No peritoneal signs. Musculoskeletal: No gross deformities. No edema. Skin: No obvious rashes or erythema. Neuro: Sensory and motor grossly intact. Cranial nerves II through XII grossly intact. Results - Labs CBC & Chem 7: 10/11/18 19:47 10/11/18 19:47 Labs: Laboratory Results - last 24 hr 10/11/18 10/11/18 10/11/18 19:47 19:47 19:47 WBC 14.5 H RBC 5.04 Hgb 15.9 H Hct 47.0 H MCV 93.2 MCH 31.5 MCHC 33.8 RDW 13.9 Plt Count 387 MPV 8.1 Neut % (Auto) 70.5 H Lymph % (Auto) 24.1 Chase % (Auto) 3.8 Eos % (Auto) 1.0 Baso % (Auto) 0.6 Neut # (Auto) 10.2 H Lymph # (Auto) 3.5 Chase # (Auto) 0.5 Eos # (Auto) 0.1 Baso # (Auto) 0.1 WBC Differential . Differential Comment Auto diff final Sodium 136 Potassium 3.8 Chloride 104 Carbon Dioxide 24.1 Anion Gap 8 BUN 20 H Creatinine 0.90 Estimated GFR 69 L Random Glucose 115 H Calcium 9.1 Magnesium 1.8 Total Bilirubin 0.3 AST 13 L ALT 15 Alkaline Phosphatase 67 Total Protein 8.0 Albumin 4.5 Lipase 187 Urine Color Urine Clarity Urine pH Ur Specific [place] Urine Protein Urine Glucose (UA) Urine Ketones Urine Occult Blood Urine Nitrate Urine Bilirubin Urine Urobilinogen Ur Leukocyte Esterase Urine WBC Ur Squamous Epith Cells Micro UA Comment Ur Microscopic Review Urine Culture Comments Serum Alcohol Less than 3 Cancelled 10/11/18 20:16 WBC RBC Hgb Hct MCV MCH MCHC RDW Plt Count MPV Neut % (Auto) Lymph % (Auto) Chase % (Auto) Eos % (Auto) Baso % (Auto) Neut # (Auto) Lymph # (Auto) Chase # (Auto) Eos # (Auto) Baso # (Auto) WBC Differential Differential Comment Sodium Potassium Chloride Carbon Dioxide Anion Gap BUN Creatinine Estimated GFR Random Glucose Calcium Magnesium Total Bilirubin AST ALT Alkaline Phosphatase Total Protein Albumin Lipase Urine Color Yellow Urine Clarity Hazy H Urine pH 5.0 Ur Specific [place] 1.033 Urine Protein 30 H Urine Glucose (UA) Negative Urine Ketones Trace H Urine Occult Blood Negative Urine Nitrate Negative Urine Bilirubin Negative Urine Urobilinogen 2.0 H Ur Leukocyte Esterase Trace H Urine WBC 1 Ur Squamous Epith Cells 12 Micro UA Comment Culture not ind Ur Microscopic Review Not Reportable Urine Culture Comments Culture not ind Serum Alcohol - Imaging Impressions Abdomen/Pelvis CT 10/11/18 19:39 CONCLUSION: 1. Findings most consistent with uncomplicated mild acute pancreatitis. No peripancreatic fluid collections. Caprini VTE Risk Assessment Caprini VTE Risk Assessment: No/Low Risk (score <= 1) Caprini Risk Assessment Model: Point Value = 1 Point Value = 2 Point Value = 3 Point Value = 5 Age 41-60 Minor surgery BMI > 25 kg/m2 Swollen legs Varicose veins or History of unexplained or recurrent spontaneous Oral contraceptives or hormone replacement Sepsis (< 1 month) Serious lung disease, including pneumonia (< 1 month) Abnormal pulmonary function Acute myocardial infarction Congestive heart failure (< 1 month) History of inflammatory bowel disease Medical patient at bed rest Age 61-74 Arthroscopic surgery Major open surgery (> 45 min) Laparoscopic surgery (> 45 min) Malignancy Confined to bed (> 72 hours) Immobilizing plaster cast Central venous access Age >= 75 History of VTE Family history of VTE Factor V Leiden Prothrombin [id number] Lupus anticoagulant Anticardiolipin antibodies Elevated serum homocysteine Heparin-induced thrombocytopenia Other congenital or acquired thrombophilia Stroke (< 1 month) Elective arthroplasty Hip, pelvis, or leg fracture Acute spinal cord injury (< 1 month) Prophylaxis Regimen: Total Risk Factor Score Risk Level Prophylaxis Regimen 0-1 Low Early ambulation 2 Moderate Order ONE of the following: *Sequential Compression Device (SCD) *Heparin 5000 units SQ BID 3-4 Higher Order ONE of the following medications: *Heparin 5000 units SQ TID *Enoxaparin/Lovenox 40 mg SQ daily (WT < 150 kg, CrCl > 30 mL/min) *Enoxaparin/Lovenox 30 mg SQ daily (WT < 150 kg, CrCl > 10-29 mL/min) *Enoxaparin/Lovenox 30 mg SQ BID (WT < 150 kg, CrCl > 30 mL/min) AND/OR *Sequential Compression Device (SCD) 5 or more Highest Order ONE of the following medications: *Heparin 5000 units SQ TID (Preferred with Epidurals) *Enoxaparin/Lovenox 40 mg SQ daily (WT < 150 kg, CrCl > 30 mL/min) *Enoxaparin/Lovenox 30 mg SQ daily (WT < 150 kg, CrCl > 10-29 mL/min) *Enoxaparin/Lovenox 30 mg SQ BID (WT < 150 kg, CrCl > 30 mL/min) AND *Sequential Compression Device (SCD) Assessment and Plan - Plan Assessment/plan: 1. Abdominal pain/pancreatitis Pace within normal limits CT of the abdomen/pelvis significant for mild pancreatitis N.p.o. IV fluid hydration Repeat lipase in a.m. Morphine for pain 2. Diabetes mellitus Holding long-acting insulin as patient n.p.o. Sliding scale insulin Monitor blood glucose 3. Gastroparesis/anxiety Continue home medications once reconciled FEN N.p.o. NS at 125 cc/hour Electrolytes: monitor and replete prn
[2018-10-12] MEDS: Morphine Inj 4 MG/ML Vial IV.PUSH PRN ×5 (02:07→23:55)
[2018-10-12] MEDS: Insulin NovoLOG Aspart Correctional Sugar Inj SQ SCH ×5 (03:30→21:28)
[2018-10-12 06:23] LABS: Baso # (Auto) 0.1 th/mm3 (0.0-0.2); Baso % (Auto) 0.7 % (0.0-2.0); Eos # (Auto) 0.3 th/mm3 (0.0-0.4); Eos % (Auto) 2.2 % (0.0-4.0); Hematocrit 43.8 % (35.0-46.0); Hemoglobin 14.7 gm/dL (11.6-15.3); Lymph # (Auto) 4.6 th/mm3 (1.0-4.8); Lymph % (Auto) 31.9 % (9.0-44.0); Mean Corpuscular HGB Conc 33.6 % (32.0-36.0); Mean Corpuscular Hemoglobin 32.3 pg (27.0-34.0); Mean Corpuscular Volume 96.1 fL (80.0-100.0); Mean Platelet Volume 7.5 fL (7.0-11.0); Mono # (Auto) 0.8 th/mm3 (0.0-0.9); Mono % (Auto) 5.2 % (0.0-8.0); Neut # (Auto) 8.7 th/mm3 (1.8-7.7); Platelet Count 308 th/mm3 (150-450); Red Blood Count 4.55 mil/mm3 (4.00-5.30); Red Cell Distribution Width 14.1 % (11.6-17.2); White Blood Count 14.6 th/mm3 (4.0-11.0)
[2018-10-12 07:09] LABS: Alanine Aminotransferase 12 U/L (10-53); Albumin 3.6 g/dL (3.4-5.0); Alkaline Phosphatase 54 U/L (45-117); Anion Gap 5 meq/L (5-15); Aspartate Aminotransferase 7 U/L (15-37); Blood Urea Nitrogen 8 mg/dL (7-18); Calcium 8.3 mg/dL (8.5-10.1); Carbon Dioxide 24.1 meq/L (21.0-32.0); Chloride 110 meq/L (98-107); Chol/HDL Ratio 5.81 Ratio; Cholesterol 199 mg/dL (120-200); Glomerular Filtration Rate Greater Than 89 mL/min (>89); Glucose,Random 126 mg/dL (74-106); HDL Cholesterol 34.2 mg/dL (40.0-60.0); Lipase 151 U/L (73-393); Potassium 3.7 meq/L (3.5-5.1); Sodium 139 meq/L (136-145); Total Protein 7.1 g/dL (6.4-8.2); Triglycerides 664 mg/dL (42-150)
--- NOTE | 2018-10-12 13:47 | ECG ---
Date Performed: 10/11/2018 Time Performed: 18:00:13 PTAGE: 43 years EKG: SINUS TACHYCARDIA NONSPECIFIC T-WAVE ABNORMALITY ABNORMAL RHYTHM ECG Since PREVIOUS TRACING , no significant change noted PREVIOUS TRACIN09/26/2017 13.30 DOCTOR: Giovanni Blanchard Interpretating Date/Time 10/12/2018 13:44:50
[2018-10-13] MEDS: Insulin NovoLOG Aspart Correctional Sugar Inj SQ SCH ×3 (03:35→12:48)
[2018-10-13 07:46] LABS: Alanine Aminotransferase 17 U/L (10-53); Albumin 3.6 g/dL (3.4-5.0); Anion Gap 10 meq/L (5-15); Aspartate Aminotransferase 25 U/L (15-37); Blood Urea Nitrogen 6 mg/dL (7-18); Calcium 8.8 mg/dL (8.5-10.1); Carbon Dioxide 23.4 meq/L (21.0-32.0); Chloride 106 meq/L (98-107); Glomerular Filtration Rate Greater Than 89 mL/min (>89); Glucose,Random 144 mg/dL (74-106); Potassium 3.8 meq/L (3.5-5.1); Sodium 139 meq/L (136-145)
[2018-10-13 07:48] LABS: Alkaline Phosphatase 108 U/L (45-117); Total Protein 7.1 g/dL (6.4-8.2)
[2018-10-13] MEDS: Morphine Inj 4 MG/ML Vial IV.PUSH PRN ×2 (08:30→14:28)
[2018-10-13 08:41] VITALS: RESP 18
[2018-10-13 11:04] VITALS: BP 117/76; PULSE 68; TEMP 97.8; O2SAT 96
--- NOTE | 2018-10-13 13:51 | P.PNIM ---
Subjective Interval history: abdominal pain is improving. nausea is less. Physical Exam Vital signs: Last Vital Signs Temp 97.8 F 10/13/18 11:02 Pulse 68 10/13/18 11:02 Resp 18 10/13/18 11:02 BP 117/76 10/13/18 11:02 Pulse Ox 96 10/13/18 11:02 Intake & Output 10/11/18 10/12/18 10/13/18 10/14/18 06:59 06:59 06:59 06:59 Intake Total 1999 2240 / 2240 300 / 300 Balance 1999 2240 / 2240 300 / 300 Weight 54.3 kg 54.3 kg Narrative: GENERAL: This is a well-nourished, well-developed patient, in no apparent distress. HEENT: not pale,anicteric CARDIOVASCULAR: Regular rate and rhythm without murmurs, gallops, or rubs. RESPIRATORY: Clear to auscultation. Breath sounds equal bilaterally. No wheezes , rales, or rhonchi. GASTROINTESTINAL: Abdomen not distended,soft, mild generalized tenderness. Normal active bowel sounds. MUSCULOSKELETAL: Extremities without clubbing, cyanosis, or edema. NEURO: Alert & Oriented x4 to person, place, time, situation. Moves all ext x4 Results Labs CBC & Chem 7: 10/12/18 06:10 10/13/18 07:10 Assessment and Plan Plan 43 yo F presented with abdominal pain, CT of the abdomen/pelvis significant for mild pancreatitis. 1. Abdominal pain/ acute pancreatitis some improvement in pain, tolerated liquid diet, advance to soft diet today. Her triglycerides are elevated,since this is a recurrent episode of acute pancreatitis, I will start her on Fenofibrate to control TG. switched to oral Oxycodone, can use Morphine for breakthrough pain. 2. Diabetes mellitus blood glucose within acceptable limits on SSI. Home insulin regimen on hold for now,can resume once able to fully tolerate diet Monitor blood glucose 3. Gastroparesis/anxiety Continue home medications once reconciled Dispo-monitoring response to diet, if she tolerates, then can discharge her this evening. Progress Note: Quality VTE Deep Vein Thrombosis/Pulmonary Embolism Present on Admission: No
[2018-10-13] MEDS ORDERED: Fenofibrate 145 MG Tablet PO SCH (14:00)
[2018-10-13] MEDS ORDERED: Fenofibrate 48 MG Tablet PO SCH (14:00)
== END 2018-10-13 17:10 | disposition home or self-care (01) ==
LOC: NEDA 17:43 → NEPC 17:43 → NEPHCDU 10-12 01:28
PROVIDERS: ADMIT Hospitalist; ATTEND Hospitalist